=== PATIENT | female | born 1950 | race Two or more races ===

== ENCOUNTER 2018-10-06 11:01 | Outpatient (CLI) | payer OTHER | END 2018-10-06 11:55 | disposition home or self-care (01) | LOC: LAB 11:01 | DX: D68.8 Other specified coagulation defects (principal); R07.89 Other chest pain; E78.2 Mixed hyperlipidemia; N39.0 Urinary tract infection, site not specified; I10 Essential (primary) hypertension; Z01.810 Encounter for preprocedural cardiovascular examination; Z01.818 Encounter for other preprocedural examination ==